=== PATIENT | female | born 1970 | race Caucasian/White ===

== ENCOUNTER 2021-05-08 05:44 | Outpatient (CLI) | payer BC ==
[~2021-05-08] VITALS: Ht 162.6 cm; Wt 63.0 kg
[2021-05-09] MEDS ORDERED: CETI10TA49 PO (16:17)
[2021-05-09] MEDS ORDERED: HYDR50TA6 PO (16:17)
== END 2021-05-09 16:30 | disposition home or self-care (01) ==
LOC: PREOP 05:44
PROVIDERS: ATTEND Surgery
DX: Z01.818 Encounter for other preprocedural examination (principal); Z12.11 Encounter for screening for malignant neoplasm of colon

== ENCOUNTER 2021-05-19 09:53 | Day surgery (SDC) | payer BC ==
[~2021-05-19] VITALS: Ht 163 cm; Wt 63.0 kg
[~2021-05-19 09:53] MED LIST: CETI10TA49 PO; HYDR50TA6 PO
[2021-05-19] MEDS ORDERED: LACTATED RINGERS 1,000 ML IV STA (09:55)
[2021-05-19] MEDS ORDERED: LACTATED RINGERS 1,000 ML IV ONE (09:56)
[2021-05-19 10:10] VITALS: BP 119/90
--- NOTE | 2021-05-19 11:46 | Progress Note-Pre Operative ---
Pre-Operative Progress Note H&P Reviewed The H&P was reviewed, patient examined and no changes noted. Time Seen by Provider: 11:44 Date H&P Reviewed: May 19, 2021 Time H&P Reviewed: 11:44 Pre-Operative Diagnosis: screening JAVIER PAK DO May 19, 2021 11:46
[2021-05-19] MEDS ORDERED: MIDAZOLAM 2 MG/2 ML (VERSED) VIAL ONE (12:44)
[2021-05-19] MEDS ORDERED: PROPOFOL INJECTION 50 ML IV ONE (12:45)
[2021-05-19 13:30] VITALS: BP 97/50
[2021-05-19 13:35] VITALS: BP 86/51
--- NOTE | 2021-05-19 13:36 | Progress Note-Post Operative ---
Post-Operative Progess Note Surgeon (s)/Breast Buffer (s) Surgeon JAVIER PAK DO Breast Buffer: none Pre-Operative Diagnosis screening Post-Operative Diagnosis Polyps int hemorrhoids Procedure & Operative Findings Date of Procedure 05/19/21 Procedure Performed/Findings Colonoscopy with hot bx PROCEDURE NOTE: After informed consent was obtained, the patient was brought to the endoscopy suite, placed in bed in left lateral decubitus position. She was administered IV sedation by the CASING MATERIAL WEIGHER who then monitored her vitals the entire time, heart rate, blood pressure and pulse ox and the scope was inserted, pushed all the way to about 130 cm and pushed into the cecum, took a picture of appendiceal orifice and then noted the ileo-cecal valve. Slowly withdrew the scope insufflating to look circumferentially at the monet starting in the cecum. Just outside the cecum I found a flat polyp and took 3 bites of it with hot biopsy. Continued up the ascending colon to the hepatic flexure, then down the transverse colon. Found another flat polyp here and did another hot biopxy. Down to the splenic flexure, into the descending colon down in to the sigmoid and finally into the rectal vault. Retroflexed the scope and took a picture of the internal hemorrhoids. The patient tolerated the procedure. She was recovered in endoscopy suite. Anesthesia Type IV sedation by CASING MATERIAL WEIGHER Estimated Blood Loss Estimated blood loss (mL): scant Specimens/Packing Specimens Removed cecal polyp transverse colon polyp JAVIER PAK DO May 19, 2021 13:36
--- NOTE | 2021-05-19 13:36 | Endoscopy Discharge Instruct ---
Endo Procedure/Findings Findings 1.: Polyp 2.: Internal Hemorrhoids Discharge Instructions - Activity: You might feel a little sleepy until tomorrow. This is due to the medicine you received to relax you. Until tomorrow, you should: NOT drive a car, operate machinery or power tools. NOT drink any alcoholic beverages. NOT make any important decisions or sign importortant papers. Do not return to work until tomorrow, unless otherwise instructed. Resume previous activities tomorrow. Diet: Start by taking liquids. If you tolerate liquids, advance to solid food. 1.: Colonscopy in 5 years Notify Physician - If you experience excessive bleeding, unusual abdominal pain, fever, or chest pain, contact your doctor immediately. JAVIER PAK DO May 19, 2021 13:36
[2021-05-19 13:40] VITALS: BP 93/54
[2021-05-19 13:45] VITALS: BP 96/54
[2021-05-19 14:06] VITALS: BP 97/54
--- NOTE | 2021-05-19 14:38 | Anesthesia-General Post-Op ---
MAC Patient Condition Mental Status/LOC: Same as Preop Cardiovascular: Satisfactory Nausea/Vomiting: Absent Respiratory: Satisfactory Pain: Controlled Complications: Absent Post Op Complications Complications None Follow Up Care/Instructions Patient Instructions None needed. Anesthesiology Discharge Order Discharge Order Patient is doing well, no complaints, stable vital signs, no apparent adverse anesthesia problems. No complications reported per nursing. BRAN SOLORZANO CRNA May 19, 2021 14:38
== END 2021-05-19 14:00 | disposition home or self-care (01) ==
LOC: ENDO 09:53
PROVIDERS: ATTEND Surgery
DX: Z12.11 Encounter for screening for malignant neoplasm of colon (principal); D12.0 Benign neoplasm of cecum; D12.3 Benign neoplasm of transverse colon; K64.8 Other hemorrhoids; Z85.3 Personal history of malignant neoplasm of breast
CPT/HCPCS: 84703

== ENCOUNTER 2022-10-14 11:57 | Outpatient (CLI) | payer BC ==
[~2022-10-14] VITALS: Ht 160 cm; Wt 62.6 kg
[2022-10-14] MEDS ORDERED: ABEM150T PO (15:55)
[2022-10-14] MEDS ORDERED: ANAS1TAB50 PO (15:55)
== END 2022-10-14 16:06 | disposition home or self-care (01) ==
LOC: PREOP 11:57
PROVIDERS: ATTEND Surgery
DX: Z01.818 Encounter for other preprocedural examination (principal)

== ENCOUNTER 2022-10-26 07:20 | Day surgery (SDC) | payer BC ==
[~2022-10-26] VITALS: Ht 160 cm; Wt 62.6 kg
[~2022-10-26 07:20] MED LIST changes: +ABEM150T PO; +ANAS1TAB50 PO; +LACTATED RINGERS 1,000 ML 1,000 ML IV STA
[2022-10-26] MEDS ORDERED: MIDAZOLAM INJ 2 MG/2 ML VIAL ONE (07:37)
[2022-10-26 07:46] VITALS: BP 123/91
--- NOTE | 2022-10-26 08:22 | Progress Note-Pre Operative ---
Pre-Operative Progress Note Date of Available H&P: Oct 13, 2022 Date H&P Reviewed: Oct 26, 2022 Time H&P Reviewed: 08:14 History & Physical: H&P Reviewed, Patient Examed, No changes noted Pre-Operative Diagnosis: rectal bleeding JAVIER PAK DO Oct 26, 2022 08:22
[2022-10-26 08:45] VITALS: BP 84/57
--- NOTE | 2022-10-26 08:49 | Progress Note-Post Operative ---
Post-Operative Progess Note Surgeon (s)/Director Of Catering (s) Surgeon JAVIER PAK DO Director Of Catering: none Pre-Operative Diagnosis rectal bleeding Post-Operative Diagnosis Internal Hemorrhoids Procedure & Operative Findings Date of Procedure 10/26/22 Procedure Performed/Findings Colonoscopy PROCEDURE NOTE: After informed consent was obtained, the patient was brought to the endoscopy suite, placed in bed in left lateral decubitus position. She was administered IV sedation by the HEEL SANDER who then monitored her vitals the entire time, heart rate, blood pressure and pulse ox and the scope was inserted, pushed all the way to about 150 cm and pushed into the cecum, took a picture of appendiceal orifice and noted the ileocecal valve. Then slowly withdrew the scope insufflating to look circumferentially at the monet starting in the cecum, up the ascending colon to the hepatic flexure, then down the transverse colon, splenic flexure, into the descending colon down in the sigmoid and then into the rectal vault and retroflexed the scope. Took picture of the internal hemorrhoids. The patient tolerated the procedure. She was recovered in endoscopy suite. Recommended for repeat colonoscopy in 10 years. Anesthesia Type IV sedation by HEEL SANDER Estimated Blood Loss Estimated blood loss (mL): none Specimens/Packing Specimens Removed none JAVIER PAK DO Oct 26, 2022 08:49
--- NOTE | 2022-10-26 08:50 | Endoscopy Discharge Instruct ---
Endo Procedure/Findings Findings 1.: Internal Hemorrhoids Discharge Instructions - Activity: You might feel a little sleepy until tomorrow. This is due to the me dicine you received to relax you. Until tomorrow, you should: NOT drive a car, operate machinery or power tools. NOT drink any alcoholic beverages. NOT make any important decisions or sign importortant papers. Do not return to work until tomorrow, unless otherwise instructed. Resume previous activities tomorrow. Diet: Start by taking liquids. If you tolerate liquids, advance to solid food. 1.: Colonscopy in 10 years Notify Physician - If you experience excessive bleeding, unusual abdominal pain, fever, or chest pain, contact your doctor immediately. Follow-Up: Other Follow up in my office in one week JAVIER PAK DO Oct 26, 2022 08:50
[2022-10-26 09:00] VITALS: BP 92/61
[2022-10-26 09:22] VITALS: BP 92/61
--- NOTE | 2022-10-26 14:45 | Anesthesia-General Post-Op ---
MAC Patient Condition Mental Status/LOC: Same as Preop Cardiovascular: Satisfactory Nausea/Vomiting: Absent Respiratory: Satisfactory Pain: Controlled Complications: Absent Post Op Complications Complications None Follow Up Care/Instructions Patient Instructions None needed. Anesthesiology Discharge Order Discharge Order Patient is doing well, no complaints, stable vital signs, no apparent adverse anesthesia problems. No complications reported per nursing. BRAN SOLORZANO CRNA Oct 26, 2022 14:45
== END 2022-10-26 09:30 | disposition home or self-care (01) ==
LOC: ENDO 07:20
PROVIDERS: ATTEND Surgery
DX: K64.8 Other hemorrhoids (principal); Z85.3 Personal history of malignant neoplasm of breast; Z86.010 Personal history of colon polyps